=== PATIENT | male | born 1955 | race African-American/Black ===

== ENCOUNTER 2017-09-29 06:05 | Day surgery (SDC) | END 2017-09-29 10:51 | disposition home or self-care (01) ==

== ENCOUNTER 2018-02-08 10:08 | Day surgery (SDC) | END 2018-02-08 14:37 | disposition home or self-care (01) ==

== ENCOUNTER 2018-02-24 07:48 | Day surgery (SDC) | END 2018-02-24 12:54 | disposition home or self-care (01) ==